=== PATIENT | male | born 2005 | race Caucasian/White ===

== ENCOUNTER → 2024-06-18 13:56 | Outpatient (CLI) | payer OTHER, SELFPAY ==
--- NOTE | 2024-06-18 14:00 | DI.MRI.S_ITS ---
PROCEDURE: MR KNEE RT WO CON INDICATIONS: PAIN IN RIGHT KNEE TECHNIQUE: Noncontrast sagittal PD fast spin echo and T2 fast spin echo with fat saturation, sagittal 3-D FLASH with fat saturation; coronal T1 spin echo and PD fast spin echo with fat saturation, and axial PD fast spin echo with fat saturation through the knee. COMPARISON: None. FINDINGS: Image quality: Excellent. Menisci: In the medial meniscus, there is a then oblique tear involving the peripheral aspect of the posterior horn, extending to the meniscus body. There is additional small horizontal flap tear of the femoral surface of the medial meniscus body, with a small meniscus flap extending into the superior gutter (series 10, image 21). Mild extrusion of the medial meniscus body. The lateral meniscus is unremarkable. Cruciate ligaments: The proximal and mid fiber of the ACL is extremely diminutive, concerning for chronic, high-grade tear. There is mild anterior subluxation of the tibial plateau with respect to the femoral condyle. The PCL is intact. Medial structures: The medial collateral ligament appears intact. The posterior oblique ligament, semimembranosus tendon insertions, oblique popliteal ligament, and meniscocapsular junction appear intact. Visualized portions of the pes anserinus tendons appear normal. No abnormal bursal fluid. Lateral structures: The lateral collateral ligament, long and short heads of the biceps femoris tendon appear intact. The popliteus tendon appears normal; the popliteofibular ligament appears intact. The posterosuperior and anteroinferior popliteomeniscal fascicles appear intact. The arcuate and fabellofibular ligaments appear intact, on either side of the lateral inferior geniculate artery. Iliotibial band appears normal. Anterior structures: The quadriceps and patellar tendons appear intact. Patellar alignment is normal. No femoral trochlear dysplasia or ventral trochlear prominence. No edema in the infrapatellar fat pad. Bones and cartilage: The cartilage of the patellofemoral compartment is well maintained. The cartilage of the medial and the lateral compartments are well maintained as well. No acute fracture. No marrow edema. Joint space: Small knee effusion. Trace popliteal cyst. Popliteal vasculature is unremarkable. IMPRESSION: 1. Complex tear of the medial meniscus with a small meniscus flap. 2. Findings concerning for chronic, high-grade tear of the ACL. Dictated by: Hannah Bundy M.D. on 06/20/2024 at 10:55 Approved by: Hannah Bundy M.D. on 06/20/2024 at 11:08
== END ==
PROVIDERS: Referring Provider Preventive Medicine Aerospace Medicine; Visit Provider Preventive Medicine Aerospace Medicine
DX: S83.231A Complex tear of medial meniscus, current injury, right knee, initial encounter (principal); M25.561 Pain in right knee; M25.461 Effusion, right knee
CPT/HCPCS: 73721

== ENCOUNTER 2025-07-03 19:11 | Emergency (ER) | payer OTHER, SELFPAY ==
[2025-07-03 19:41] VITALS: BP 139/81; PULSE 118; RESP 17; TEMP 36.9; O2SAT 97; BMI 31.6
[2025-07-03 20:05] VITALS: PULSE 121; O2SAT 98
[2025-07-03 20:06] VITALS: BP 150/78; PULSE 116; O2SAT 96
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
[2025-07-03 20:30] VITALS: BP 136/74; PULSE 115; O2SAT 98
== END 2025-07-03 20:53 | disposition home or self-care (01) ==
PROVIDERS: Emergency Provider Emergency Medicine
DX: S83.91XA Sprain of unspecified site of right knee, initial encounter (principal); V89.2XXA Person injured in unspecified motor-vehicle accident, traffic, initial encounter
CPT/HCPCS: 99281